=== PATIENT | female | born 1995 | race Caucasian/White ===

== ENCOUNTER → 2019-09-21 | Outpatient (CLI) | payer SELFPAY | END | disposition home or self-care (01) | LOC: LABWHC1 12:06 | PROVIDERS: ATTEND Pediatrics Pediatric Infectious Diseases | DX: Z11.59 Encounter for screening for other viral diseases (principal) | CPT/HCPCS: U0003; C9803 ==

== ENCOUNTER → 2019-09-22 | Outpatient (CLI) | payer SELFPAY | LOC: LABWHC1 11:47 | PROVIDERS: ATTEND Pediatrics Pediatric Infectious Diseases | DX: Z11.59 Encounter for screening for other viral diseases (principal) | CPT/HCPCS: U0003; C9803 ==

== ENCOUNTER → 2019-09-24 | Outpatient (CLI) | payer SELFPAY | END | disposition home or self-care (01) | LOC: LABWHC1 13:26 | PROVIDERS: ATTEND Pediatrics Pediatric Infectious Diseases | DX: Z11.59 Encounter for screening for other viral diseases (principal) | CPT/HCPCS: 87635; C9803 ==

== ENCOUNTER → 2020-11-29 | Outpatient (CLI) | payer SELFPAY | END | disposition home or self-care (01) | LOC: LABWHC1 14:57 | PROVIDERS: ATTEND Internal Medicine | DX: Z20.822 Contact with and (suspected) exposure to COVID-19 (principal); R69 Illness, unspecified | CPT/HCPCS: U0003; C9803; U0005 ==